=== PATIENT | female | born 1990 ===

== ENCOUNTER 2016-12-09 09:20 | Outpatient (CLI) | payer BC ==
[2016-12-09 11:02] LABS: ALT (SGPT) 31 U/L (0-55); AST (SGOT) 19 U/L (5-34); Albumin 3.8 g/dL (3.5-5.0); Alkaline Phosphatase 101 U/L (40-150); Anion Gap 13 mmol/L (10-20); BUN (Urea Nitrogen) 9 mg/dL (7.0-18.7); Bilirubin, Total 0.9 mg/dL (0.2-1.2); Calc. Creatinine Clearance 0 mL/min (70-130); Calcium 8.9 mg/dL (7.8-10.44); Carbon Dioxide 23 mmol/L (22-29); Cardiac Risk 14.5 (Less than 4.5); Chloride 104 mmol/L (98-107); Cholesterol 463 mg/dL (< 200 Desired); Estimated GFR-MDRD Greater than 90; Globulin 3.6 g/dL (2.4-3.5); Glucose 242 mg/dL (70-105); HDL Cholesterol 32 mg/dL (>60 Neg Risk); Potassium 4.1 mmol/L (3.5-5.1); Protein, Total 7.4 g/dL (6.0-8.3); Sodium 136 mmol/L (136-145)
[2016-12-09 11:29] LABS: Hemoglobin A1c 10.2 % (4.0-6.0)
[2016-12-09 11:31] LABS: Eosinophils 1 % (0-10); Hemoglobin 13.6 g/dL (12.0-16.0); Lymphocytes 27 % (21-51); MDiff Complete? YES; Mean Corpuscular HGB CONC 31.8 g/dL (32.0-36.0); Mean Corpuscular Hemoglobin 25.9 pg (27.0-31.0); Mean Corpuscular Volume 81.5 fl (81.0-99.0); Mean Platelet Volume 7.3 fL (7.4-10.4); Monocytes 4 % (0-10); Neutrophil 68 % (42-75); Platelet Count 305 thou/uL (130-400); RBC Distribution Width 12.4 % (11.5-14.5); Red Blood Cell (RBC) Count 5.24 mill/uL (4.20-5.40); White Blood Cell (WBC) Count 6.7 thou/uL (4.8-10.8)
[2016-12-09 11:57] LABS: Triglycerides 1626 mg/dL (Less than 150)
== END 2016-12-09 09:21 ==
LOC: HPCALD 09:20
PROVIDERS: ATTEND Physician Assistant
DX: Z00.01 Encounter for general adult medical examination with abnormal findings (principal); E11.9 Type 2 diabetes mellitus without complications
CPT/HCPCS: 36415; 80053; 80061; 83036; 84443; 85025